=== PATIENT | male | born 1975 | race Caucasian/White ===

== ENCOUNTER → 2017-02-11 | Outpatient (CLI) | payer BC ==
[~2017-02-11] MED LIST: DULO60CA44 PO
--- NOTE | 2017-02-11 12:00 | DIAGNOSTIC IMAGING REPORT ---
CERVICAL SPINE 5 VIEWS, THORACIC SPINE 3 VIEWS HISTORY: Neck pain. L THORACIC PAIN L SHOULDER BLADE COMPARISON: None. FINDINGS: The cervical spine is visualized from C1 through the superior endplate of T1. There is no fracture. No subluxation. Mild disc space narrowing at C5-C6 and C6-C7. Prevertebral soft tissues and the atlantodens interval are intact. No fracture or subluxation within the thoracic spine. Disc spaces are preserved. Paraspinal soft tissues are unremarkable. IMPRESSION: No fracture or subluxation within the cervical spine or thoracic. Mild degenerative disease at C5-C6 and C6-C7. Electronically signed by: Raji Downing M.D. 02/11/2017 11:59 AM Dictated Date/Time: 02/11/2017 11:56 AM
== END | disposition home or self-care (01) ==
LOC: C.RADPV 11:28
PROVIDERS: ATTEND Chiropractor
DX: M54.2 Cervicalgia (principal); M54.6 Pain in thoracic spine; M25.512 Pain in left shoulder

== ENCOUNTER → 2017-03-26 | Outpatient (CLI) | payer BC ==
--- NOTE | 2017-03-26 18:13 | DIAGNOSTIC IMAGING REPORT ---
CERVICAL SPINE MRI HISTORY: Left hand pain. DISC HERNIATION TECHNIQUE: Multiplanar multisequence MRI of the cervical spine was performed without the use of contrast. COMPARISON STUDY: Cervical spine 02/11/2017. FINDINGS: Straightening of the cervical spine. Alignment is intact. No fracture or subluxation. Prevertebral soft tissues and the C1-C2 interval are intact. The visualized posterior fossa is unremarkable. The cervical spinal cord demonstrates a normal signal intensity. Mild disc space narrowing at C5-C6 and C6-C7. C2-C3: No significant central canal or neural foraminal narrowing. C3-C4: No significant central canal or neural foraminal narrowing. C4-C5: No significant central canal or neural foraminal narrowing. C5-C6: Small broad-based posterior disc osteophyte complex without significant central canal narrowing. Mild right and moderate left neural foraminal narrowing. C6-C7: Small broad-based posterior disc bulge with a left paracentral/foraminal disc protrusion which compresses the exiting nerve root at this level. This disc protrusion is best seen on axial image 98 of 136 and measures 6 mm. The disc bulge also results in mild left anterior cord deformity. No significant right-sided neural foraminal narrowing. C7-T1: No significant central canal or neural foraminal narrowing. IMPRESSION: 1. Small broad-based posterior disc bulge with a left paracentral/foraminal focal disc protrusion measuring 6 mm. This compresses the exiting left nerve root at this level. The disc bulge also results in mild left anterior cord deformity. 2. Small broad-based posterior disc osteophyte complex at C5-C6 without significant central canal narrowing. However, there is mild right and moderate left neural foraminal narrowing at this level. Electronically signed by: Raji Downing M.D. 03/26/2017 6:12 PM Dictated Date/Time: 03/26/2017 6:06 PM
== END | disposition home or self-care (01) ==
LOC: C.MRIBC 16:44
PROVIDERS: ATTEND Orthopaedic Surgery Orthopaedic Surgery of the Spine
DX: M50.20 Other cervical disc displacement, unspecified cervical region (principal)

== ENCOUNTER 2017-08-04 08:55 | Emergency (ER) | payer BC ==
[~2017-08-04] VITALS: Ht 182.9 cm; Wt 103.0 kg
[2017-08-04 09:01] VITALS: Ht 182.9 cm; Wt 103.0 kg
[2017-08-04] MEDS ORDERED: DULO-24 PO (09:16)
--- NOTE | 2017-08-04 09:46 | DIAGNOSTIC IMAGING REPORT ---
R FOOT MIN 3 VIEWS ROUTINE CLINICAL HISTORY: Right foot infection COMPARISON: None. DISCUSSION: No fractures or dislocations are visualized. There are no erosive or destructive changes. There is no conventional radiographic evidence of acute osteomyelitis. There is mild cortical thickening involving the posterior aspect of the distal tibia. This is felt to be chronic. No gas is visualized within the soft tissues. IMPRESSION: 1. No acute fractures 2. No conventional radiographic evidence of osteomyelitis Electronically signed by: Sandro Bailey M.D. 08/04/2017 9:45 AM Dictated Date/Time: 08/04/2017 9:44 AM
[2017-08-04 09:47] LABS: BASO % 0.2 %; BASO ABS # 0.02 K/uL (0-0.2); COMPLETE YES; EOS % 1.1 %; HEMATOCRIT 44.6 % (42-52); IG% 0.2 %; LYMPH % 13.5 %; MEAN CELL VOLUME 96.3 fL (80-100); MEAN CORPUSCULAR HEMOGLOBIN 33.7 pg (25-34); MEAN PLATELET VOLUME 9.7 fL (7.4-10.4); MONO % 9.8 %; NEUT % 75.2 %; PLATELET COUNT 180 K/uL (130-400); RED BLOOD COUNT 4.63 M/uL (4.7-6.1); WHITE BLOOD COUNT 10.34 K/uL (4.8-10.8)
[2017-08-04 10:05] LABS: BUN/CREATININE RATIO 19.6 (10-20); CALCIUM 8.7 mg/dl (8.5-10.1); CREATININE 0.74 mg/dl (0.60-1.40); POTASSIUM 4.2 mmol/L (3.5-5.1)
[2017-08-04] MEDS ORDERED: DOXY-300 PO (10:33)
[2017-08-04] MEDS ORDERED: CEPH500C PO (10:33)
--- NOTE | 2017-08-04 10:34 | EMERGENCY ROOM VISIT NOTE ---
History First contact with patient: 09:03 Chief Complaint: FOOT PAIN Stated Complaint: FOOT PAIN, RIGHT History of Present Illness The patient is a 41 year old male who presents to the Emergency Room with complaints of "foot pain". The patient states that he has had cracks to the skin on the bottom of his right distal foot for the past few weeks. He states that this Wednesday he noticed redness extending near the right fifth toe up to the foot. He states that now it is painful, and the redness is spreading. He was seen Wednesday and given amoxicillin, and the Keflex Wednesday. He has been taking these as prescribed but notes that the redness is progressing. He rates the pain as an 8/10. He denies any fevers, chills, nausea or vomiting. He believes his tetanus is up-to-date. Review of Systems A complete 10-point Review of Systems was discussed with the patient, with pertinent positives and negatives listed in the History of Present Illness. All remaining Review of Systems questions can be considered negative unless otherwise specified. Past Medical/Surgical History No pertinent. No diabetes. Family History No pertinent. Social History Smoking Status: Never Smoker Pt. lives locally Current/Historical Medications Scheduled Cephalexin Monohydrate (Keflex), 500 MG PO QID Doxycycline (Monohydrate) (Doxycycline), 100 MG PO BID Duloxetine HCl (Cymbalta), 2 MG PO BID Physical Exam Vital Signs Date Time Temp Pulse Resp B/P (MAP) Pulse Ox O2 Delivery O2 Flow Rate FiO2 08/04/17 10:49 36.5 67 18 112/64 99 08/04/17 10:47 67 18 112/64 99 Room Air 08/04/17 09:01 36.5 66 18 116/77 99 Room Air Physical Exam VITAL SIGNS - Vital signs and nursing notes were reviewed. Stable. GENERAL - 41-year-old male appearing his stated age who is in no acute distress. Communicates well with provider and answers questions appropriately. SKIN - Small Redness on R side of foot near 5th digit to the midfoot. HEAD - NC/AT. EXTREMITIES - No clubbing or peripheral cyanosis. No pretibial edema present. Neurovascularly intact in RLE. +5/5 strength noted in UE/LE bilaterally. NEUROLOGIC - Cranial nerves II through XII grossly intact. PSYCH - A&O, and cooperates fully with examiner. Pt is very pleasant and interacts well with examiner. Medical Decision & Procedures ER Provider Diagnostic Interpretation: R FOOT MIN 3 VIEWS ROUTINE CLINICAL HISTORY: Right foot infection COMPARISON: None. DISCUSSION: No fractures or dislocations are visualized. There are no erosive or destructive changes. There is no conventional radiographic evidence of acute osteomyelitis. There is mild cortical thickening involving the posterior aspect of the distal tibia. This is felt to be chronic. No gas is visualized within the soft tissues. IMPRESSION: 1. No acute fractures 2. No conventional radiographic evidence of osteomyelitis Electronically signed by: Sandro Bailey M.D. 08/04/2017 9:45 AM Dictated Date/Time: 08/04/2017 9:44 AM Laboratory Results 08/04/17 09:30 Red Blood Count 4.63, Mean Corpuscular Volume 96.3, Mean Corpuscular Hemoglobin 33.7, Mean Corpuscular Hemoglobin Concent 35.0, Mean Platelet Volume 9.7, Neutrophils (%) (Auto) 75.2, Lymphocytes (%) (Auto) 13.5, Monocytes (%) (Auto) 9.8, Eosinophils (%) (Auto) 1.1, Basophils (%) (Auto) 0.2, Neutrophils # (Auto) 7.78, Lymphocytes # (Auto) 1.40, Monocytes # (Auto) 1.01, Eosinophils # (Auto) 0.11, Basophils # (Auto) 0.02 08/04/17 09:30 Test 08/04/17 09:30 White Blood Count 10.34 K/uL (4.8-10.8) Red Blood Count 4.63 M/uL (4.7-6.1) Hemoglobin 15.6 g/dL (14.0-18.0) Hematocrit 44.6 % (42-52) Mean Corpuscular Volume 96.3 fL (80-100) Mean Corpuscular Hemoglobin 33.7 pg (25-34) Mean Corpuscular Hemoglobin Concent 35.0 g/dl (32-36) Platelet Count 180 K/uL (130-400) Mean Platelet Volume 9.7 fL (7.4-10.4) Neutrophils (%) (Auto) 75.2 % Lymphocytes (%) (Auto) 13.5 % Monocytes (%) (Auto) 9.8 % Eosinophils (%) (Auto) 1.1 % Basophils (%) (Auto) 0.2 % Neutrophils # (Auto) 7.78 K/uL (1.4-6.5) Lymphocytes # (Auto) 1.40 K/uL (1.2-3.4) Monocytes # (Auto) 1.01 K/uL (0.11-0.59) Eosinophils # (Auto) 0.11 K/uL (0-0.5) Basophils # (Auto) 0.02 K/uL (0-0.2) RDW Standard Deviation 44.7 fL (36.4-46.3) RDW Coefficient of Variation 12.9 % (11.5-14.5) Immature Granulocyte % (Auto) 0.2 % Immature Granulocyte # (Auto) 0.02 K/uL (0.00-0.02) Anion Gap 6.0 mmol/L (3-11) Est Creatinine Clear Calc Drug Dose 161.4 ml/min Estimated GFR () 131.9 Estimated GFR (Non- 113.8 BUN/Creatinine Ratio 19.6 (10-20) Calcium Level 8.7 mg/dl (8.5-10.1) Medical Decision Patient was seen and evaluated as above. He presents to us today with right foot pain. There is evidence of cellulitis on exam. No evidence of abscess. He is well on exam with stable vital signs. IV access is initiated, the above workup was performed. no leukocytosis or anemia. No concern metabolic process. X-rays aren't also myelitis retained foreign body. I believe that he has not had enough time to all the antibiotics to work therefore will add doxycycline in the event that there is no left coverage. I outlined the area with felt pen. He is to follow-up or return here with any worsening of his redness. He is also to return with any new/concerning symptoms. He was educated upon management, educated upon worrisome symptoms which to return, had questions by discharge, and was discharged home in good condition. It is also important note that he is taking Keflex 500 mg by mouth twice a day of which I recommend he now changed to 4 times a day dosing. In evaluation treatment this patient following differential diagnoses retained: Cellulitis, osteomyelitis, among others. Impression Primary Impression: Foot pain Additional Impression: Cellulitis Departure Information Dispostion Home / Self-Care Condition GOOD Prescriptions Doxycycline (Monohydrate) (Doxycycline) 100 Mg Cap 100 MG PO BID for 10 Days, #20 TABS Prov: Mann Richard PA-C 08/04/17 Cephalexin Monohydrate (Keflex) 500 Mg Cap 500 MG PO QID for 7 Days, #28 CAP Prov: Mann Richard PA-C 08/04/17 Referrals No Doctor, Assigned (PCP) Patient Instructions My [facility] Additional Instructions You were seen for a foot cellulitis/infection Please take the keflex 500mg every 6 hrs for the entire duration You have been prescribed Doxycycline 100mg every 12 hours to be taken as prescribed. This is an antibiotic. All antibiotics have the potential to cause diarrhea. Stop this medication and contact a medical provider if you were to develop any significant adverse side effects including: wheezing, shortness of breath, passing out, vomiting, or a diffuse rash. Always take antibiotics as directed and COMPLETE the ENTIRE course regardless of the improvement of your symptoms. Protect yourself with sunscreen while on this antibiotic as it increases your skin's sensitivity to the light and cause bad sunburns. In addition, you should be sure to take this pill after eating. Make sure the pill is completely swallowed as this medication can cause irritation to the lining of the esophagus. Do NOT drink milk or eat anything with large amounts of Calcium in them 1 hour prior to taking this medication as this will decrease the effectiveness of the medication. Please watch redness and if progresses more than 1 inch beyond purple wu please return Please return with any fever, chills or any new/concerning symptoms. Please follow up with family doctor within 1 week. Problem Qualifiers
[2017-08-04 10:49] VITALS: BP 112/64; PULSE 67; TEMP 36.5; O2SAT 99
== END 2017-08-04 10:49 | disposition home or self-care (01) ==
LOC: C.EDB 08:56
DX: M79.671 Pain in right foot (principal); L03.115 Cellulitis of right lower limb